=== PATIENT | male | born 1965 | race Caucasian/White ===

== ENCOUNTER 2017-11-24 11:24 | Emergency (ER) | payer OTHER ==
[~2017-11-24] VITALS: Ht 175.3 cm; Wt 108.9 kg
[~2017-11-24 11:24] MED LIST: INSU100V26 SUBCUT; INSU100V9 SUBCUT; LEVO125T8 PO
[2017-11-24 11:29] VITALS: BP_SYST 154
[2017-11-24] MEDS ORDERED: DIPH-TET-PERTUS Vaccine 0.5 ML VIAL (ADACEL) I.M. ONE (12:30)
[2017-11-24 12:40] VITALS: BP_SYST 141
== END 2017-11-24 12:40 | disposition home or self-care (01) ==
LOC: SED 11:24
DX: S91.332A Puncture wound without foreign body, left foot, initial encounter (principal); E11.9 Type 2 diabetes mellitus without complications; I10 Essential (primary) hypertension; E03.9 Hypothyroidism, unspecified; Z79.4 Long term (current) use of insulin; W45.0XXA Nail entering through skin, initial encounter; Y93.01 Activity, walking, marching and hiking; Y92.89 Other specified places as the place of occurrence of the external cause; Y99.8 Other external cause status
CPT/HCPCS: 90715; 99284